=== PATIENT | male | born 1965 | race Caucasian/White ===

== ENCOUNTER 2019-06-26 17:04 | Emergency (ER) | payer OTHER ==
[2019-06-26 17:22] VITALS: BP 129/71
--- NOTE | 2019-06-26 17:35 | UC ---
Eye Complaint HPI - HPI Summary HPI Summary: 54 yo man with 2 week hx of episodes of eye irritation associated with morning drainage. Normal acuity. No photophobia. Hx of corneal ulceration was about 15 years ago, thought secondary to grit in the eye. Healed well without recurrence. No infectious or chemical or environmental exposures are associated with this. - History of Current Complaint Chief Complaint: UCEye Stated Complaint: EYE COMPLAINT (BOTH) Time Seen by Provider: 06/26/19 17:25 Hx Obtained From: Patient Onset/Duration: Gradual Onset, Lasting Weeks - 2 Timing: Hours Severity Initially: Mild Severity Currently: Moderate Pain Intensity: 6 Location of Injury: Conjunctiva, Eye Lid (lower) Aggravating Factor(s): Nothing Alleviating Factor(s): Nothing - no drops tried. Associated Signs And Symptoms: Positive: Drainage (Purulent) - in the morning.. Negative: Photophobia - Risk Factors Penetrating Injury Risk Factor: Negative Globe Rupture Risk Factors: Negative Acute Glaucoma Risk Factors: Negative Optic Artery Occlusion Risk Factors: Negative - Allergies/Home Medications Allergies/Adverse Reactions: Allergies Allergy/AdvReac Type Severity Reaction Status Date / Time No Known Allergies Allergy Verified 06/26/19 17:18 PMH/Surg Hx/FS Hx/Imm Hx Endocrine History: Dyslipidemia Cardiovascular History: Hypertension - Surgical History Surgical History: Yes Surgery Procedure, Year, and Place: pins & plates left leg 2011 - Family History Known Family History: Positive: Other - No family hx of eye disease. - Social History Occupation: Employed Full-time Lives: With Family Alcohol Use: Occasionally Substance Use Type: None Smoking Status (MU): Former Smoker Type: Cigarettes Have You Smoked in the Last Year: No When Did the Patient Quit Smoking/Using Tobacco: 23 years ago Review of Systems All Other Systems Reviewed And Are Negative: Yes Constitutional: Positive: Negative Skin: Positive: Negative Eyes: Positive: Drainage, Eye Redness. Negative: Diplopia, Photophobia ENT: Positive: Sore Throat - scratchy for the past day or so.. Negative: Ear Ache, Sinus Congestion Respiratory: Negative: Cough Cardiovascular: Negative: Chest Pain Gastrointestinal: Positive: Negative Genitourinary: Positive: Negative Motor: Positive: Negative Neurovascular: Positive: Negative Musculoskeletal: Positive: Negative Neurological: Positive: Negative Psychological: Positive: Negative Is Patient Immunocompromised?: No Physical Exam Triage Information Reviewed: Yes Appearance: Well-Appearing, No Pain Distress Vital Signs: Initial Vital Signs Temp 98.2 F 06/26/19 17:20 Pulse 91 06/26/19 17:20 Resp 17 06/26/19 17:20 BP 129/71 06/26/19 17:20 Pulse Ox 99 06/26/19 17:20 Eye Exam: Other - mild upper and lower lid swelling. ENT: Positive: Normal ENT inspection, Pharynx normal - past tonsillectomy Dental Exam: Normal Neck: Positive: Supple, Nontender, No Lymphadenopathy Respiratory: Positive: Lungs clear, Normal breath sounds Cardiovascular: Positive: RRR, No Murmur Musculoskeletal Exam: Normal Neurological Exam: Normal Psychological Exam: Normal Skin Exam: Normal Eye Complaint Course/Dx - Course Course Of Treatment: Has blepharitis, and will use hot compressing and eye ointment at night. - Differential Dx/Diagnosis Differential Diagnosis/HQI/PQRI: Conjunctivitis, Corneal Abrasion, Other - blepharitis. Provider Diagnosis: Blepharitis of both eyes Discharge ED - Sign-Out/Discharge Documenting (check all that apply): Patient Departure All imaging exams completed and their final reports reviewed: No Studies - Discharge Plan Condition: Good Disposition: HOME Prescriptions: Erythromycin OPTH OINT* [Erythromycin 0.5% OPTH OINT*] 1 applic BOTH EYES BEDTIME #1 ophth.oint Patient Education Materials: Blepharitis (ED) Referrals: Faviola King PA [Primary Care Provider] - Additional Instructions: Your eye redness and lid swelling is blepharitis, likely related to dry eye syndrome. Hot compress your eyes for five minutes morning and night. Apply the eye ointment to both upper lids at bedtime; this should help to decrease the eye redness and lid swelling. Ensure that you schedule a visit with your opthalmologist. There is an over the counter drop called Zaditor (ketorolac) eye drops which you could use twice daily in addition to help to relieve eye irritation. - Billing Disposition and Condition Condition: GOOD Disposition: Home
== END 2019-06-26 17:59 | disposition home or self-care (01) ==
LOC: UCCORT 17:04
DX: H01.00B Unspecified blepharitis left eye, upper and lower eyelids (principal); H01.00A Unspecified blepharitis right eye, upper and lower eyelids; J02.9 Acute pharyngitis, unspecified; I10 Essential (primary) hypertension; Z87.891 Personal history of nicotine dependence
CPT/HCPCS: 99212; G0463